=== PATIENT | female | born 1960 | race African-American/Black ===

== ENCOUNTER 2021-02-01 08:59 | Outpatient (CLI) | payer MEDICARE, MEDICAID | END 2021-02-01 23:59 | disposition home or self-care (01) | LOC: RAD 08:59 | PROVIDERS: ATTEND Psychiatry & Neurology Neurology | DX: R41.3 Other amnesia (principal) | CPT/HCPCS: 95816 ==

== ENCOUNTER 2022-08-01 11:03 | Emergency (ER) | payer MEDICARE, MEDICAID ==
[~2022-08-01] VITALS: Ht 162.6 cm; Wt 77.3 kg
[2022-08-01 11:07] VITALS: BP 200/103
--- NOTE | 2022-08-01 13:14 | NUR ---
Pt moved from ER rm 17 to 13. Ice pack applied to left hand.
== END 2022-08-01 15:14 | disposition home or self-care (01) ==
LOC: ER 11:03
DX: S62.615A Displaced fracture of proximal phalanx of left ring finger, initial encounter for closed fracture (principal); K21.9 Gastro-esophageal reflux disease without esophagitis; E11.9 Type 2 diabetes mellitus without complications; I10 Essential (primary) hypertension; F17.200 Nicotine dependence, unspecified, uncomplicated; F12.10 Cannabis abuse, uncomplicated; Z90.49 Acquired absence of other specified parts of digestive tract; Z88.5 Allergy status to narcotic agent; Z88.1 Allergy status to other antibiotic agents; Z88.8 Allergy status to other drugs, medicaments and biological substances; W01.0XXA Fall on same level from slipping, tripping and stumbling without subsequent striking against object, initial encounter; Y93.89 Activity, other specified; Y92.89 Other specified places as the place of occurrence of the external cause; Y99.8 Other external cause status
CPT/HCPCS: 29125; 73140; 99284; J7030; 99283; A6449

== ENCOUNTER 2022-08-12 05:39 | Day surgery (SDC) | payer MEDICARE, MEDICAID ==
[2022-08-05 11:48] LABS: BASOPHILS % (AUTO) 0.5 % (0-1); EOSINOPHILS # (AUTO) 0.1 X10'3 (0-0.9); EOSINOPHILS % (AUTO) 0.8 % (0-6); LYMPHOCYTES # (AUTO) 2.4 X10'3 (1.1-4.8); MEAN CORPUSCULAR HEMOGLOBIN 33.4 PG (27.0-31.0); MEAN CORPUSCULAR HGB CONC 34.3 g/dL (33.0-36.5); MEAN CORPUSCULAR VOLUME 97.3 FL (78-98); MEAN PLATELET VOLUME 9.6 FL (7.4-10.4); MONOCYTES # (AUTO) 0.4 X10'3 (0-0.9); MONOCYTES % (AUTO) 6.4 % (2-12); NEUTROPHILS # (AUTO) 3.7 X10'3 (1.8-7.7); NEUTROPHILS % (AUTO) 56.3 % (42-75); PRE OP HEMATOCRIT 40.9 % (35.0-45.0); PRE OP PLATELET COUNT 222 X10'3 (140-440); RED BLOOD COUNT 4.21 X10'6 (4.20-5.60); RED CELL DISTRIBUTION WIDTH 12.9 % (11.5-14.5)
[2022-08-05 12:04] LABS: CLARITY,URINE SLIGHTLY CLOUDY (Clear); GLUCOSE, URINE NEGATIVE (Neg); KETONES,URINE TRACE mg/dl (Neg); LEUKOCYTE ESTERASE ,URINE NEGATIVE (Neg); NITRITES, URINE NEGATIVE (Neg); OCCULT BLOOD,URINE NEGATIVE (Neg); PROTEIN,URINE TRACE mg/dl (Neg); UROBILINOGEN,URINE 0.2 E.U/dL (0.2-1.0)
[2022-08-05 12:05] LABS: COLOR,URINE DARK YELLOW (Yellow); UA COLLECTION TYPE CLN CATCH MIDSTREAM
[2022-08-05 12:09] LABS: MUCUS STRANDS MANY /LPF (Neg)
[2022-08-05 12:10] LABS: SQUAMOUS EPITHELIAL CELL,UR MANY /LPF (FEW)
[2022-08-05 12:11] LABS: BACTERIA,URINE FEW /HPF (Neg); RBC,URINE 0-2 /HPF (0-2); WBC,URINE 0-4 /HPF (0-4)
[2022-08-05 12:13] LABS: ALBUMIN 3.8 G/DL (3.4-5.0); ALKALINE PHOSPHATASE 79 IU/L (46-116); BLOOD UREA NITROGEN 7 MG/DL (7-18); BUN/CREATININE RATIO 12.5 (6.6-38.0); CALCIUM 9.7 MG/DL (8.5-10.1); CHLORIDE 104 MMOL/L (99-107); CREATININE 0.56 MG/DL (0.40-0.90); PRE OP ALT 36 U/L (30-65); PRE OP ANION GAP 9 (8-16); PRE OP AST 36 U/L (10-37); PRE OP BILIRUB, TOTAL 0.3 MG/DL (0.0-1.0); PRE OP GLUCOSE 97 MG/DL (70-104); PRE OP POTASSIUM 3.7 MMOL/L (3.4-5.1); PRE OP SODIUM 143 MMOL/L (135-145); TOTAL CARBON DIOXIDE 29.8 MMOL/L (24-32); TOTAL PROTEIN 7.6 G/DL (6.4-8.2); eGFR > 90 ML/MIN
[2022-08-12] VITALS (12 sets, daily range): BP systolic 138–212; BP diastolic 77–117
[~2022-08-12] VITALS: Ht 162.6 cm; Wt 77.5 kg
[~2022-08-12 05:39] MED LIST: ACYC-126 PO; BORAGE OIL; CLON-371 PO; DOCUMENT DATE & TIME OF BETA-BLOCKER PO ONE; ESOM40CA17 PO; FAMO20TA47 PO; FISH; FLAX; HYDR-3973 PO; METF-1203 PO; METO25TA6 PO; MULT-1085 PO; PARO-141 PO; PREG75CA75 PO; SUPER B COMPLEX; [UNRECOGNIZED DRUG - OTHER]; albuterol 2.5 MG/3 ML nebule NEB PRN; ceFAZolin inj. 2,000 MG in dextrose 5%-water 100 ML IV ONE; famotidine 20mg tablet PO ONE; ringers solution, lacted 1,000 ML IV SCH
[2022-08-12] MEDS ORDERED: bacitracin 15gm ointment TP ONE (06:37)
[2022-08-12] MEDS ORDERED: BUPIVAcaine/PF 5 mg/ml 10ml ONE ×2 (06:45→08:14)
[2022-08-12] MEDS ORDERED: sevoflurane 250ml liquid IH ONE (07:25)
[2022-08-12] MEDS ORDERED: midazolam 1 mg/ML 2ml injection ONE (07:41)
[2022-08-12] MEDS ORDERED: fentaNYL/PF 50MCG/1 ML 2ML syringe ONE (07:41)
[2022-08-12] MEDS ORDERED: LIDOcaine 2% (20mg/ml) 5ml vial ONE (07:50)
[2022-08-12] MEDS ORDERED: propofol inj 20 ML IV ONE (07:50)
[2022-08-12] MEDS ORDERED: ondansetron/PF 4mg/2ml inj IV PRN (08:15)
[2022-08-12] MEDS ORDERED: ringers solution, lacted 1,000 ML IV SCH (08:15)
[2022-08-12] MEDS ORDERED: meperidine/PF 25mg/ml syringe IV PRN ×3 (08:15)
[2022-08-12] MEDS ORDERED: morphine 2 MG/ML inj. syringe IV PRN (08:15)
[2022-08-12] MEDS ORDERED: proCHLORperazine 10 MG/2 ml inj IV PRN (08:15)
[2022-08-12] MEDS ORDERED: morphine 4 MG/ML inj SYRINge IV PRN (08:15)
[2022-08-12] MEDS ORDERED: BUPIVAcaine 0.5% inj/PF 30 ml vial IJ ONE (09:00)
[2022-08-12] MEDS ORDERED: dexamethasone sod phosphate 4mg/ml inj. ONE (09:26)
--- NOTE | 2022-08-12 09:29 | NUR ---
Received from OR via [facility] , accompanied by Anesthesiologist KELLY and report given by Anesthesiolgist. PT ARRIVES AAOX4, ON O2 MASK, TALKING COMFORTABLLY, DENIES PAIN. PT BP ELEVATED GREATER THAN 180. PRN'S TO BE GIVEN. Manpreet [employer] DRY AND INTACT. Addendum: 08/12/22 at 1038 by Rakan Flores RN Amended: Links added.
[2022-08-12] MEDS: enalaprilat dihydrate 2.5mg/2ml vial IV PRN ×3 (09:34→10:16)
[2022-08-12] MEDS: labetalol 20mg/4ml (5mg/ml) syringe IV PRN ×3 (09:58→10:10)
[2022-08-12] MEDS ORDERED: hydrALAZINE 20mg/ml inj. IV PRN (10:25)
--- NOTE | 2022-08-12 10:25 | NUR ---
PT'S BP ELVATED GREATER THAN 180 DESPITE ALL PRN BP MEDICATIONS THAT WERE GIVEN. PT REPORTS NO PAIN. DR FALCON NOTIFIED, PRN HYDRALAZINE ORDERED. Addendum: 08/12/22 at 1040 by Rakan Flores RN Amended: Links added.
[2022-08-12] MEDS ORDERED: hydrALAZINE 20mg/ml inj. IV ONE (10:31)
--- NOTE | 2022-08-12 11:19 | NUR ---
PT DC INTO CARE OF VICKI BROWN BY [facility], MEETS DC REQUIREMENTS. BP CONTROLLED, EDUCATION PROVIDED ON BP AND FOLLOW UP CARE WITH PMD, PT VERBALIZED UNDERSTANDING. DC PAPERWORK PROVIDED, WRITTEN AND VERBAL, PT VERBALIZED UNDERSTANDING. PT HAS NO COMPLAINTS OF PAIN, PT COMFORTABLE. DEMONSTRATES APPROPRIATE RETURN USE OF CRUTCHES WITH CAM BOOT. Addendum: 08/12/22 at 1237 by Rakan Flores RN Amended: Links added.
== END 2022-08-12 11:19 | disposition home or self-care (01) ==
LOC: PAS 05:39
PROVIDERS: ATTEND Podiatrist Foot & Ankle Surgery
DX: M20.11 Hallux valgus (acquired), right foot (principal); I10 Essential (primary) hypertension; E11.9 Type 2 diabetes mellitus without complications; K21.9 Gastro-esophageal reflux disease without esophagitis; F32.A Depression, unspecified; F17.210 Nicotine dependence, cigarettes, uncomplicated; B19.20 Unspecified viral hepatitis C without hepatic coma; F40.00 Agoraphobia, unspecified; Z79.84 Long term (current) use of oral hypoglycemic drugs; Z79.899 Other long term (current) drug therapy; Z88.5 Allergy status to narcotic agent; Z88.8 Allergy status to other drugs, medicaments and biological substances; Z90.710 Acquired absence of both cervix and uterus; Z98.890 Other specified postprocedural states; Z90.49 Acquired absence of other specified parts of digestive tract
CPT/HCPCS: 28297; 36415; 73620; 76000; 80053; 81001; 82948; 85025; 93005; A6223; C1713; J0360; J0690; J1100; J2175; J2250; J2704; J3010; J3490; J7030; J7060; J7120; S0020; Z7506; Z7508; Z7512; A4618; A6449; A7000